=== PATIENT | female | born 1985 | race Caucasian/White ===

== ENCOUNTER 2017-08-15 10:05 | Inpatient (IN) | payer OTHER ==
[2017-08-15] MEDS ORDERED: EPSOM SALT 454 GM TP PRN (10:49)
[2017-08-15] MEDS ORDERED: LR 1,000 ML IV PRN (10:49)
[2017-08-15] MEDS ORDERED: OLIVE OIL 118 ML BTL MISC PRN (10:49)
[2017-08-15] MEDS ORDERED: OXYTOCIN 20 UNIT in LR 1,000 ML IV PRN (10:49)
[2017-08-15] MEDS ORDERED: TERBUTALINE SULFATE 1 MG/ML VIAL IV PRN (10:49)
--- NOTE | 2017-08-15 11:09 | GHP ---
[f rep st] HISTORY AND PHYSICAL DATE OF ADMISSION: 08/15/2017 ADMITTING DIAGNOSIS: Intrauterine at 39 and 4/7 weeks' gestation with spontaneous rupture of membranes and spontaneous labor. HISTORY OF PRESENT ILLNESS: The patient is a 31-year-old, 3, para 1-0-1 -1, with a last menstrual period of 11/11/2016 and an EDC of 08/18/2017, confirmed by a first trimester ultrasound at 8 weeks. She has had good care at [facility] [place] since registration at 8 weeks' gestation and she has had a relatively uncomplicated course except for GBS positive. She awoke this morning at 6:45 to a gush of clear fluid. She had a couple, multiple gushes and has started having contractions that are getting stronger, but are currently approximately every 10 minutes. Denies bloody show. Has had good movement. On evaluation, heart tones are in the 140s, reactive, moderate variability, category 1. She is aura regularly every 10 minutes. Cervix is 2 cm, 80% minus 2. She is grossly ruptured for clear fluid, and she will be admitted for GBS prophylaxis and expectant labor management. PAST OBSTETRICAL HISTORY: In 2013, she had a missed and a D and C. In June 2015, she had a viable female, 6 pounds 2 ounces, at 39 weeks. She had spontaneous rupture of membranes and then was augmented with Pitocin, and this is her 3rd . She has no significant past medical issues, no medical problems. PAST SURGICAL HISTORY: She had the D and C in 2013. At age 12, she was involved in a trauma and had a right femur fracture and a growth plate surgery. She had tonsils and adenoids in 2000. ALLERGIES: She has no known drug allergies. MEDICATIONS: Include vitamins, DHA and Tylenol. LABS: She is O positive, antibody negative, RPR nonreactive. Rubella immune. Hepatitis negative. HIV negative. Cystic fibrosis, SMA, fragile X negative. Pap, gonorrhea and chlamydia negative. UA negative. Verifi was normal. AFP was normal. One-hour GTT 92. GBS is positive. SOCIAL HISTORY: She is . She lives with her and her daughter. 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 She has been recently fired and has had a lot of job stress in the past couple weeks. She denies tobacco, alcohol, and drug use. FAMILY HISTORY: Maternal grandfather had coronary artery disease and adult- onset diabetes. Paternal grandmother had a stroke; also problems with addiction. That is all. REVIEW OF SYSTEMS: Negative except for the pertinent positives as above. OBJECTIVE: VITAL SIGNS: Today she is afebrile. Vital signs are stable. heart tones 140s, reactive, moderate variability, category 1. She is aura regularly every 10 minutes. Again, her cervix is 2, 80%, minus 2, grossly ruptured for clear fluid. ASSESSMENT AND PLAN: A 31-year-old, 3, para 1-0-1-1, at 39 and 4/7th weeks' gestation with spontaneous rupture of membranes, early spontaneous labor , and GBS positive. Patient will be admitted, start ampicillin for GBS prophylaxis and expectant labor management. The patient will desire an epidural for pain control in active labor. /[id number]/MODL MTDD
[2017-08-15 11:15] LABS: % IMMATURE GRANULYOCYTES 0.2 % (0.0-1.1); ABSOLUTE IMMATURE GRANULOCYTES 0.02 10^3/uL (0.00-0.10); ADD DIFF? NO; ADD MORPH? NO; ADD SCAN? NO; ATYPICAL LYMPHOCYTE FLAG 0 (0-99); FRAGMENT RBC FLAG 0 (0-99); HEMATOCRIT 40.8 % (38.0-47.0); HEMOGLOBIN 14.8 g/dL (12.6-16.3); LEFT SHIFT FLG 0 (0-99); LIPEMIA HEMOLYSIS FLAG 90 (0-99); MEAN CELL HEMOGLOBIN 31.4 pg (27.9-34.1); MEAN CELL HEMOGLOBIN CONCENTR. 36.3 g/dL (32.4-36.7); MEAN CELL VOLUME 86.4 fL (81.5-99.8); MEAN PLATELET VOLUME 12.2 fL (8.7-11.7); PLATELET CLUMPS FLAG 0 (0-99); PLATELET COUNT 150 10^3/uL (150-400); RED BLOOD CELL COUNT 4.72 10^6/uL (4.18-5.33); RED CELL DISTRIBUTION WIDTH 13.4 % (11.5-15.2)
[2017-08-15] MEDS: AMPICILLIN SODIUM 1 GM in NS 50 ML IV SCH ×4 (11:42→20:04)
[2017-08-15] MEDS ORDERED: LIDOCAINE 1% 300 MG/30 ML SDV ONE (12:43)
[2017-08-15] MEDS ORDERED: OLIVE OIL 118 ML BTL ONE (12:44)
[2017-08-15] MEDS ORDERED: MISOPROSTOL 200 MCG TAB ONE (12:44)
[2017-08-15] MEDS ORDERED: AMMONIA AROMATIC 1 EACH AMP IH ONE (12:44)
[2017-08-15] MEDS ORDERED: OXYTOCIN 10 UNIT/ML VIAL ONE (12:44)
[2017-08-15] MEDS ORDERED: TERBUTALINE SULFATE 1 MG/ML VIAL ONE (12:44)
[2017-08-15] MEDS ORDERED: fentaNYL 2MCG/ML/BUP 0.1% RTU 100 ML BAG EP ONE (13:23)
[2017-08-15] MEDS ORDERED: fentaNYL 100 MCG/2 ML INJ ONE (13:24)
[2017-08-15] MEDS ORDERED: PHENYLEPHRINE HCL 100 MCG/ML SYR ONE (13:24)
[2017-08-15] MEDS ORDERED: BUPIVACAINE 0.25% 30 ML SDV ONE (13:24)
--- NOTE | 2017-08-15 14:20 | PREANESOB ---
Obstetric Pre-Anesthesia Info - General Info Proposed Procedure: Labor and delivery. : 3 Para: 1 ANATOLIY: 08/18/17 Gestational Age: 39 week(s) and 4 day(s) - Info Status: Full Term Monitors: External FHR Baseline (bpm): 130 FHR Pattern: Reassuring - Labor Status Cervical Dilation per last OB SVE: 2 Indications for Labor Analgesia: Pain Control Labor Epidural: Proposed Anesthesia ROS: Prior labor epidural. Prior General anesthesia x 3. Allergies/Adverse Reactions: Allergy/AdvReac Type Severity Reaction Status Date / Time No Known Allergies Allergy Verified 07/15/14 07:23 Home Medications: Medication Instructions Recorded 1 tab PO DAILY 07/15/14 Vit B Cmplx 3/Folic AC/C/Biot 1 tab PO DAILY 08/15/17 Visit Medications: Generic Name Dose Route Start Last Admin Trade Name Freq PRN Reason Stop Dose Admin Lactated Ringer's 1,000 mls @ 0 mls/hr 08/15/17 10:49 Lr IV 08/16/17 10:48 PRN PRN SEE PROTOCOL CONDITIONS Protocol Per Protocol Oxytocin 20 unit/ Lactated 1,002 mls @ 150 mls/hr 08/15/17 10:49 Ringer's IV PRN PRN Post- bleeding Ibuprofen 600 mg 08/15/17 10:49 Motrin PO 02/11/18 10:48 Q6HRS PRN post , inflammation Magnesium Sulfate 454 gm 08/15/17 10:49 Epsom Salt TP 02/11/18 10:48 Q1H PRN perineal discomfort Finley Oil 118 ml 08/15/17 10:49 Sweet Oil MISC 02/11/18 10:48 ONCE PRN perineal massage Terbutaline Sulfate 0.25 mg 08/15/17 10:49 Brethine IV 02/11/18 10:48 ONCE PRN Tachysystole Discontinued Medications Generic Name Dose Route Start Last Admin Trade Name Freq PRN Reason Stop Dose Admin Ammonia (Aromatic Spirit) Confirm 08/15/17 12:44 Ammonia Aromatic Administered 08/15/17 12:45 Dose 1 each IH .STK-MED ONE Bupivacaine HCl Confirm 08/15/17 13:24 Sensorcaine 0.25% Sdv Administered 08/15/17 13:25 Dose 30 ml .ROUTE .STK-MED ONE Ephedrine Sulfate Confirm 08/15/17 12:44 Ephedrine Sulfate Administered 08/15/17 12:45 Dose 50 mg .ROUTE .STK-MED ONE Fentanyl Confirm 08/15/17 13:24 Sublimaze Administered 08/15/17 13:25 Dose 100 mcg .ROUTE .STK-MED ONE Fentanyl/Bupivacaine HCl Confirm 08/15/17 13:23 Fentanyl/Bupivacaine/Ns 2 Mcg/Ml 0.1% (Premix Administered 08/15/17 13:24 Dose 100 ml EP .STK-MED ONE Ampicillin Sodium 1 gm/ Sodium 50 mls @ 100 mls/hr 08/15/17 11:00 08/15/17 12 :05 Chloride IV 08/15/17 11:59 50 mls Q30M KRISS Administration Protocol Lidocaine HCl Confirm 08/15/17 12:43 Lidocaine Hcl 1% Administered 08/15/17 12:44 Dose 300 mg .ROUTE .STK-MED ONE Misoprostol Confirm 08/15/17 12:44 Cytotec Administered 08/15/17 12:45 Dose 1,000 mcg .ROUTE .STK-MED ONE Finley Oil Confirm 08/15/17 12:44 Sweet Oil Administered 08/15/17 12:45 Dose 118 ml .ROUTE .STK-MED ONE Oxytocin Confirm 08/15/17 12:44 Pitocin Administered 08/15/17 12:45 Dose 40 unit .ROUTE .STK-MED ONE Phenylephrine HCl Confirm 08/15/17 13:24 Neosynephrine Administered 08/15/17 13:25 Dose 1,000 mcg .ROUTE .STK-MED ONE Terbutaline Sulfate Confirm 08/15/17 12:44 Brethine Administered 08/15/17 12:45 Dose 1 mg .ROUTE .STK-MED ONE - Anesthesia History Response to Local Anesthetics: Normal Anesthesia & Operative History: No Prior Problems Family Anesthesia History: Negative - Social History Substance Use/Abuse: Denies - Vital Signs Blood Pressure: 118/74 Heart Rate: 69 Height/Weight (Nursing): Height 167.64 cm Weight 76.204 kg - Focused Exam Neck exam: FROM Mallampati Score: Class 1 Mouth exam: normal dental/mouth exam Pulmonary: no respiratory distress Cardiovascular: regular rate and rhythym Labs: 08/15/17 11:00 Patient ABO/Rh O POSITIVE 08/15/17 11:00 - Plan Anesthetic Plan: JARON Consent Signed and on Chart: Yes Patient/Guardian Understands and Agrees to Plan: Yes Urgent/Emergent Case: Anes eval completed preop but documented later for safe timely pt care
[2017-08-15] MEDS ORDERED: PHENYLEPHRINE HCL 100 MCG/ML SYR IVP PRN (14:24)
[2017-08-15] MEDS ORDERED: ONDANSETRON 4 MG/2 ML VIAL IVP PRN (14:24)
--- NOTE | 2017-08-15 14:24 | POSTANESTH ---
Post Anesthetic Evaluation Cardiovascular Status: Normal, Stable Respiratory Status: Normal, Stable Level of Consciousness/Mental Status: Can Participate in Eval Pain Control: Adequate, Prn Tx Ordered Nausea/Vomiting Control: Adequate, Prn Tx Ordered Complications Possibly Related to Anesthesia: None Noted (BP stable after phenylephrine x 1.)
[2017-08-15] MEDS ORDERED: fentaNYL 2MCG/ML/BUP 0.1% RTU 100 ML EP SCH (14:30)
[2017-08-15] MEDS ORDERED: LR 500 ML IV SCH (14:30)
[2017-08-15] MEDS ORDERED: OXYTOCIN IV SCH (15:30)
[2017-08-15] MEDS ORDERED: [UNRECOGNIZED DRUG - OTHER] IV SCH (15:30)
--- NOTE | 2017-08-15 18:44 | OBPROG ---
Labor Progress Note Assessment/Plan: Assessment: 31 y/o @ 39 weeks with SROM and spontaneous labor on pitocin augmentation. Plan: Good cervical progress and overall she is comfortable with her epidural. Re check in 1 hour or prn sooner. 08/15/17 18:43 Subjective/Intrapartum Course: 08/15/17 18:40 Pt is feeling more pain and pressure in upper abdomen and shaky. Objective: 08/15/17 11:00 Patient ABO/Rh O POSITIVE 08/15/17 11:00 Temp Pulse Resp BP Pulse Ox 69 118/74 08/15/17 14:21 08/15/17 14:21 - SVE Dilation (cm): 9 Effacement (%): 90 Station: 0 Membranes: SROM Amniotic Fluid Color: Clear - Contraction Pattern Assessment Current Contraction Pattern: Regular (Q 2-3) - AP Antepartum Course: 08/15/17 18:42 uncomplicated pre course, GBS + Oxytocin Orders Assessment - Pre-Induction/Augmentation Assessment Gestational Age: 39 week(s) and 4 day(s) ICD10 Worksheet Patient Problems: Problems Problem Status Onset (spontaneous vaginal delivery) Acute
[2017-08-15] MEDS ORDERED: HYDROCORTISONE 0.5% CREAM TP PRN (20:35)
[2017-08-15] MEDS ORDERED: ACETAMINOPHEN 325 MG TAB PO PRN (20:35)
[2017-08-15] MEDS ORDERED: SIMETHICONE 80 MG TAB CHEW PO PRN (20:35)
--- NOTE | 2017-08-15 20:38 | OBDEL ---
Info Type: Vaginal Presentation at Delivery: Vertex L&D Analgesia/Anesthesia Type: Epidural GBS+: Yes Antibiotic Used for + GBS: Ampicillin Intrapartum Medications: Generic Name Dose Route Start Last Admin Trade Name Freq PRN Reason Stop Dose Admin Lactated Ringer's 1,000 mls @ 0 mls/hr 08/15/17 10:49 08/15/17 13:00 Lr IV 08/16/17 10:48 1,000 mls PRN PRN Administration SEE PROTOCOL CONDITIONS Protocol Per Protocol Oxytocin 30 unit/ Sodium 503 mls @ 0 mls/hr 08/15/17 15:30 08/15/17 15:29 Chloride IV 02/11/18 15:29 503 mls CONT KRISS Administration Protocol Per Protocol Ampicillin Sodium 1 gm/ Sodium 50 mls @ 100 mls/hr 08/15/17 16:30 08/15/17 20 :04 Chloride IV 09/14/17 16:29 50 mls Q4H KRISS Administration Discontinued Medications Generic Name Dose Route Start Last Admin Trade Name Freq PRN Reason Stop Dose Admin Ampicillin Sodium 1 gm/ Sodium 50 mls @ 100 mls/hr 08/15/17 11:00 08/15/17 12 :05 Chloride IV 08/15/17 11:59 50 mls Q30M KRISS Administration Protocol - Infant Care Provider Commercial Loan Analyst/CONTINUOUS MINER OPERATOR HELPER: Dina Lopez - Hospital Course Intrapartum: 08/15/17 18:40 Pt is feeling more pain and pressure in upper abdomen and shaky. Indications for Delivery: SROM Vaginal Delivery - Delivery Provider Delivery Physician/CNM: Dorothy Mata - Labor and Delivery Onset of Contractions Date: 08/15/17 Onset of Contractions Time: 09:45 Onset of Contractions Type: Augmented Rupture of Membranes Date: 08/15/17 Rupture of Membranes Time: 06:45 Rupture of Membranes Type: Spontaneous Amniotic Fluid Color: Clear Dilation Complete Date: 08/15/17 Dilation Complete Time: 20:15 Placenta Delivery Date: 08/15/17 Placenta Delivery Time: 20:23 Total Hours of Labor: 10 Laceration: 2nd Degree Repair: 2-0, Vicryl Vaginal Sponge Count Correct: Yes Vaginal Needle Count Correct: Yes Vaginal Sweep Performed: No EBL: 200 Delivery Events: None [place] Data [place] Delivery Date: 08/15/17 Delivery Time: 20:19 ANATOLIY: 08/18/17 Gestational Age: 39 week(s) and 4 day(s) Sex of Infant: Female Score (1 Min): 8 Score (5 Min): 9 ICD10 Worksheet Patient Problems: Problems Problem Status Onset (spontaneous vaginal delivery) Acute
[2017-08-15] MEDS: IBUPROFEN 600 MG TAB PO PRN (20:52)
[2017-08-16] MEDS: HYDROCODONE/APAP 5/325 TAB PO PRN ×5 (00:34→21:29)
[2017-08-16] MEDS: IBUPROFEN 600 MG TAB PO PRN ×4 (03:14→23:11)
[2017-08-16 05:26] VITALS: RESP 16
[2017-08-16] MEDS: DOCUSATE SODIUM 100 MG CAP PO PRN ×2 (08:39→21:29)
--- NOTE | 2017-08-16 14:22 | OBPP ---
Progress Note Assessment/Plan: Assessment: PPD 1 s/p Plan: routine care 08/16/17 14:21 Subjective/ Course: 08/16/17 14:21 Pt doing great - BF going ok - strong cramps with BF. using norco and ibu. bld is lessening. urinating fine. Objective: 08/15/17 11:00 Patient ABO/Rh O POSITIVE 08/15/17 11:00 Temp Pulse Resp BP Pulse Ox 36.4 C 56 L 16 111/73 95 08/16/17 08:00 08/16/17 08:00 08/16/17 08:00 08/16/17 08:00 08/16/17 08:00 Uterine Position/Fundal Height: At Umbilicus Uterine Tone: Firm Physical Exam - Physical Exam Abdomen: non-tender, soft Extremities: non-tender, pedal edema (minimal) Skin: normal color, warm/dry Neuro/Psych: alert, normal mood/affect
[2017-08-16 22:03] VITALS: O2SAT 97
[2017-08-17] MEDS: IBUPROFEN 600 MG TAB PO PRN ×2 (04:58→11:20)
[2017-08-17] MEDS: DOCUSATE SODIUM 100 MG CAP PO PRN (08:11)
--- NOTE | 2017-08-17 09:55 | OBGCSDC ---
General Delivery Information - General Info : 3 Para: 2 Abortions: 1 Type: Vaginal L&D Analgesia/Anesthesia Type: Epidural Admission Date: 08/15/17 Labs: Patient ABO/Rh O POSITIVE 08/15/17 11:00 Hct 40.8 % (38.0-47.0) 08/15/17 11:00 - Hospital Course Antepartum: 08/15/17 18:42 uncomplicated pre course, GBS + Intrapartum: 08/15/17 18:40 Pt is feeling more pain and pressure in upper abdomen and shaky. : 08/16/17 14:21 Pt doing great - BF going ok - strong cramps with BF. using norco and ibu. bld is lessening. urinating fine. 08/17/17 09:55 S) Pt doing well, she is well. Reports min bleeding and cramping. She is ambulating and voiding without difficulty. @BS, supportive. Denies any depression. O) VSS Constitutional: A&Ox3, WNWF HEENT: normocephalic, atraumatic, supple neck Heart: RRR, no murmur Chest: CTA-B Abdomen: soft, nontender Uterus: firm @ U-1 lochia: min rubra perineum: healing well extremities: 1+edema, negative jerri's sign neuro: grossly normal A) [id number] s/p PPD#2 P) d/c home today cont routine pp care danger S&S discussed - aware to call if any occur RTO in 4/6weeks Vaginal - Delivery Provider Delivery Physician/CNM: Dorothy Mata - Diagnosis Labor: Augmented Rupture of Membranes Type: Spontaneous Amniotic Fluid Color: Clear Laceration: 2nd Degree Repair: 2-0, Vicryl Delivery Events: None - Delivery EBL: 200 [place] Data [place] Delivery Date: 08/15/17 Delivery Time: 20:19 ANATOLIY: 08/18/17 Gestational Age: 39 week(s) and 6 day(s) Sex of : Female [place] Weight (gm): 0 g Score (1 Min): 8 Score (5 Min): 9 Discharge Information - Discharge Information Prescriptions: Ibuprofen [Motrin (*)] 600 mg PO Q6HRS PRN #30 tab PRN Reason: post , inflammation Condition: Good Instruction/Follow Up: Four Weeks, Six Weeks
[2017-08-17 12:28] VITALS: BP 118/78; PULSE 51; TEMP 97
== END 2017-08-17 14:27 | disposition home or self-care (01) | DRG 775 ==
LOC: OBSVTOIN 10:05 → FLD 10:05 → FOB 23:10
PROVIDERS: ADMIT Obstetrics & Gynecology; ATTEND Obstetrics & Gynecology
PROC: 0KQM0ZZ Repair Perineum Muscle, Open Approach (ICD-10-PCS; principal; 2017-08-15)
PROC: 10E0XZZ Delivery of Products of Conception, External Approach (ICD-10-PCS; principal; 2017-08-15)
DX: O70.1 Second degree perineal laceration during delivery (principal); O99.820 Streptococcus B carrier state complicating pregnancy; Z3A.39 39 weeks gestation of pregnancy; Z37.0 Single live birth
CPT/HCPCS: J0290; J2370; J3010; J3105